=== PATIENT | male | born 1955 | race American Indian/Alaskan Native ===

== ENCOUNTER 2018-07-09 04:38 | Inpatient (IN) | payer OTHER ==
--- NOTE | 2018-07-09 05:16 | ED PDOC ---
Arrival/HPI - General Historian: Patient, Family - History of Present Illness Narrative History of Present Illness (Text): 07/09/18 05:14 63 y/o M with no significant PMHx brought in by EMS after presenting with seizure. Per sister present at bedside, pt had sudden foaming out of mouth, contraction of upper extremities, slurred speech which lead to pt falling forward from chair onto forehead. No urinary/stool incontinence reported. Pt responds to questions, however has difficulty speaking. Pt was sleeping most of the day, and was resting when the event occurred. Pt had last drink at 5 pm the previous night, and has a history alcohol abuse with about 1/2 pint daily x 30 years. Sister reports pt had normal meals throughout the day. Pt is a , and is visiting [place] from [place], where he normally visits the [facility]. PMH: denies All: NKDA PSH: unspecified neck surgery SH: Alcohol: 1/2 pint vodka/gin x ~30 years. 1/2 pack cigarettes x 50 years. FH: mother: breast ca- at 51y/o. father: esophageal ca- 63 y/o Meds: multivitamins Time/Duration: 1/2 hour <Nic Stevens - Last Filed: 07/09/18 07:03> <Cresencio Bruno - Last Filed: 07/09/18 07:06> - General Chief Complaint: Seizure Time Seen by Provider: 07/09/18 04:49 Past Medical History - Provider Review Nursing Documentation Reviewed: Yes - Psychiatric Hx Substance Use: No - Anesthesia Hx Anesthesia: No <Nic Stevens - Last Filed: 07/09/18 07:03> Family/Social History - Physician Review Nursing Documentation Reviewed: Yes Family/Social History: Neoplasm/Cancer Smoking Status: Never Smoked Hx Alcohol Use: No Hx Substance Use: No <Nic Stevens - Last Filed: 07/09/18 07:03> Allergies/Home Meds <Nic Stevens - Last Filed: 07/09/18 07:03> <Cresencio Bruno - Last Filed: 07/09/18 07:06> Allergies/Adverse Reactions: Allergies No Known Allergies Allergy (Verified 07/09/18 04:47) Home Medications: Home Meds Medication Instructions Recorded Confirmed No Known Home Med 07/09/18 07/09/18 Review of Systems - Review of Systems Constitutional: Normal Eyes: Normal ENT: Normal Respiratory: Normal Cardiovascular: Normal Gastrointestinal: Normal Genitourinary Male: Normal Musculoskeletal: Normal Skin: Normal Neurological: Seizure Endocrine: Normal Hemo/Lymphatic: Normal Psychiatric: Normal <Dandy Stevensmarylu - Last Filed: 07/09/18 07:03> Physical Exam Vital Signs Reviewed: Yes Temperature: Febrile Blood Pressure: Hypertensive Pulse: Tachycardic Respiratory Rate: Normal Appearance: Positive for: Non-Toxic, Comfortable Pain Distress: None Mental Status: Positive for: Alert and Oriented X 3 - Systems Exam Head: Present: Normocephalic, Abrasion (forehead) Pupils: Present: PERRL Extroacular Muscles: Present: EOMI Conjunctiva: Present: Normal Mouth: Present: Moist Mucous Membranes Neck: Present: Normal Range of Motion Respiratory/Chest: Present: Clear to Auscultation, Good Air Exchange. No: Re spiratory Distress, Accessory Muscle Use Cardiovascular: Present: Normal S1, S2, Tachycardic. No: Murmurs Abdomen: No: Tenderness, Distention, Peritoneal Signs Back: Present: Normal Inspection Upper Extremity: Present: Normal Inspection. No: Cyanosis, Edema Lower Extremity: Present: Normal Inspection. No: Edema Neurological: Present: GCS=15. No: Speech Normal Skin: Present: Warm, Dry, Normal Color. No: Rashes Psychiatric: Present: Alert <RodneyNic - Last Filed: 07/09/18 07:03> Vital Signs Pulse BP 07/09/18 05:48 145 H 205/104 H <Cresencio Bruno - Last Filed: 07/09/18 07:06> Medical Decision Making ED Course and Treatment: 07/09/18 05:25 Impression: 63 y/o M presenting after seizure Differential diagnosis includes, but not limited to: seizure ETOH withdrawal CVA intracranial hemorrhage Plan: Labs Head CT EKG Chest xray troponins [facility] protocol Ativan 1mg Reassess & Dispo Progress Notes: 07/09/18 05:44 Per nursing, pt had seizure-like activity while getting CT scan. 2mg ativan administered. 07/09/18 06:51 Pt re-evaluated. BP decreased to 162/94, HR down to 99. Pt resting comfortably. 07/09/18 07:03 Sign-out given to Dr. Downs. VSS stable. - RAD Interpretation Radiology Orders: 07/09/18 05:11 HEAD W/WO CONTRAST [CT] Stat CHEST ONE VIEW [RAD] Stat 07/09/18 05:13 HEAD W/O CONTRAST [CT] Stat - EKG Interpretation EKG Interpretation (Text): 07/09/18 05:54 Sinus tachycardia Possible L atrial enlargement HR: 115 QTc: 453 <Nic Stevens - Last Filed: 07/09/18 07:03> ED Course and Treatment: Impression: Pt seen and evaluated with medical accounts receivable specialist. Aware and agree with HPI, clinical findings, plan, and management. Pt, whose past medical history includes alcohol abuse, brought in s/p seizure episode. Plan: -- CT Head w/o contrastSigned out to -- EKG -- Chest X-ray -- Labs, alcohol level, troponin -- Urinalysis -- Ativan -- Lopressor -- Reassess and disposition 07/09/18 06:11 CT Head: Normal size of the ventricles and extra-axial spaces for the patient's age. Normal white matter tracts of the supratentorial brain. Normal basal ganglia and thalami. Normal brainstem. Normal cerebellum. There is no demonstrated extra-axial, intraparenchymal, or intraventricular h emorrhage. There are no findings of an acute ischemic infarction. Normal calvarium. There is no demonstrated fracture. Normal soft tissue structures. Normal visualized paranasal sinuses. IMPRESSION: Normal unenhanced CT scan of the brain. Electronically signed on Jul 09, 2018 6:03:09 AM EST by: Shay Guillermo M.D., Certified by ABR, MSK, Neuroradiology 07/09/18 07:05 Signed out to pending/labs/reassess/final disposition - Lab Interpretations Lab Results: 07/09/18 04:49 07/09/18 04:49 Lab Results 07/09/18 04:49: Sodium 138, Potassium 4.2, Chloride 105, Carbon Dioxide 16 L, Anion Gap 21 H, BUN 14, Creatinine 1.0, Est GFR ( Amer) > 60, Est GFR (Non-Af Amer) > 60, Random Glucose 133 H, Calcium 9.3, Phosphorus 4.1, Magnesium 2.0, Total Bilirubin 0.7, AST 261 H, ALT 122 H, Alkaline Phosphatase 106, Troponin I Pending, Total Protein 8.7 H, Albumin 4.6, Globulin 4.1, Albumin/Globulin Ratio 1.1 07/09/18 04:49: WBC 6.6, RBC 4.69, Hgb 14.5, Hct 42.8, MCV 91.3, MCH 30.9, MCHC 33.9, RDW 14.3, Plt Count 225, MPV 9.6, Gran % 39.8 L, Lymph % (Auto) 42.9 H, [place] % (Auto) 14.2 H, Eos % (Auto) 2.6, Baso % (Auto) 0.5, Gran # 2.65, Lymph # (Auto) 2.9, [place] # (Auto) 0.9 H, Eos # (Auto) 0.2, Baso # (Auto) 0.03 - RAD Interpretation Radiology Orders: 07/09/18 05:11 CHEST ONE VIEW [RAD] Stat 07/09/18 05:13 HEAD W/O CONTRAST [CT] Stat - Medication Orders Current Medication Orders: Acetaminophen (Tylenol 650 Mg Supp) 650 mg RC STAT STA Stop: 07/09/18 05:56 Discontinued Medications Lorazepam (Ativan) 2 mg IVP ONCE ONE; Protocol Stop: 07/09/18 05:35 Last Admin: 07/09/18 05:43 Dose: 2 mg IVP Administration Document 07/09/18 05:43 LAC (Rec: 07/09/18 05:43 LAC [id number]) Charges for Administration # of IVP Administrations 1 Metoprolol Tartrate (Lopressor) 5 mg IVP STAT STA Stop: 07/09/18 05:44 Last Admin: 07/09/18 05:48 Dose: 5 mg IVP Administration Document 07/09/18 05:48 JOL (Rec: 07/09/18 05:48 JOL [id number]) Charges for Administration # of IVP Administrations 1 [facility] Pulse and Blood Pressure Document 07/09/18 05:48 JOL (Rec: 07/09/18 05:48 JOL [id number]) Pulse Pulse Rate (60-90 beats/min) 145 Blood Pressure Blood Pressure (100/60-150/90 mm Hg) 205/104 <Cresencio Bruno - Last Filed: 07/09/18 07:06> - PA / MANAGEMENT EXPERT / Resident Statement JAIRO has reviewed & agrees with the documentation as recorded. / has examined the patient and agrees with the treatment plan. <Nic Stevens - Last Filed: 07/09/18 07:03> Disposition/Present on Arrival - Present on Arrival Any Indicators Present on Arrival: No History of DVT/PE: No History of Uncontrolled Diabetes: No Urinary Catheter: No History of Decub. Ulcer: No History Surgical Site Infection Following: None - Disposition Have Diagnosis and Disposition been Completed?: No Disposition Time: 07:04 <Nic Stevens - Last Filed: 07/09/18 07:03> - Present on Arrival Any Indicators Present on Arrival: No - Disposition Have Diagnosis and Disposition been Completed?: No <Cresencio Bruno - Last Filed: 07/09/18 07:06> - Disposition Diagnosis: New onset seizure Patient Problems: Current Active Problems Problem Status Onset New onset seizure Acute Condition: FAIR Forms: [employer] (Mexican)
[2018-07-09 05:32] LABS: BASO # 0.03 K/mm3 (0.0-2.0); BASO % 0.5 % (0.0-3.0); EOS # 0.2 (0.0-0.7); EOS % 2.6 % (1.5-5.0); GRAN # 2.65 (1.4-6.5); GRAN % 39.8 % (50.0-68.0); HEMOGLOBIN 14.5 g/dL (14.0-18.0); LYMPH # 2.9 (1.2-3.4); LYMPH % 42.9 % (22.0-35.0); MEAN CELL VOLUME 91.3 fl (80.0-105.0); MEAN CORPUSCULAR HEMOGLOBIN 30.9 pg (25.0-35.0); MEAN CORPUSCULAR HGB CONC 33.9 g/dl (31.0-37.0); MEAN PLATELET VOLUME 9.6 fl (7.0-11.0); MONO # 0.9 (0.1-0.6); MONO % 14.2 % (1.0-6.0); RBC 4.69 10^6/uL (3.5-6.1); RED CELL DISTRIBUTION WIDTH 14.3 % (11.5-14.5); WHITE BLOOD COUNT 6.6 10^3/uL (4.5-11.0)
[2018-07-09] MEDS ORDERED: Metoprolol 1 mg/ml Inj IVP STA (05:43)
[2018-07-09 05:50] LABS: ALB/GLOB RATIO 1.1 (1.1-1.8); ALBUMIN 4.6 g/dL (3.0-4.8); ALT/SGPT 122 U/L (7-56); AST/SGOT 261 U/L (17-59); BLOOD UREA NITROGEN 14 mg/dL (7-21); CALCIUM 9.3 mg/dL (8.4-10.5); GFR NON-AFRICAN AMERICAN > 60
[2018-07-09 05:59] LABS: TROPONIN I < 0.01 ng/mL
--- NOTE | 2018-07-09 07:01 | ED PDOC ---
Physical Exam Vital Signs Pulse BP 07/09/18 05:48 145 H 205/104 H Temperature: Febrile Blood Pressure: Hypertensive Pulse: Tachycardic Respiratory Rate: Normal Appearance: Positive for: Well-Appearing, Non-Toxic, Comfortable Mental Status: Positive for: Lethargic Medical Decision Making ED Course and Treatment: 07/09/18 06:[address] Ruelas with patient VSS after Lopressor. Patient came in for new onset seizure, febrile, tachycardic and tacypneic. Had 1 episode of seizure in Emergency Room. CTH negative with VBG and reassessment pending. 07/09/18 07:17 VBG results show lactate of 10.6. Updated family on findings and they are in agreement with plan for admission. Call placed to Dr. Zeng. 07/09/18 07:[address] Zeng(medical service) who accepts patient onto her service. She requests Dr. Williamson(neurology) for consult and Zosyn for empiric coverage. Patient placed on telemetry. - Lab Interpretations Lab Results: 07/09/18 04:49 07/09/18 04:49 Lab Results 07/09/18 04:49: Sodium 138, Potassium 4.2, Chloride 105, Carbon Dioxide 16 L, Anion Gap 21 H, BUN 14, Creatinine 1.0, Est GFR ( Amer) > 60, Est GFR (Non-Af Amer) > 60, Random Glucose 133 H, Calcium 9.3, Phosphorus 4.1, Magnesium 2.0, Total Bilirubin 0.7, AST 261 H, ALT 122 H, Alkaline Phosphatase 106, Troponin I < 0.01, Total Protein 8.7 H, Albumin 4.6, Globulin 4.1, Albumin/Globulin Ratio 1.1 07/09/18 04:49: WBC 6.6, RBC 4.69, Hgb 14.5, Hct 42.8, MCV 91.3, MCH 30.9, MCHC 33.9, RDW 14.3, Plt Count 225, MPV 9.6, Gran % 39.8 L, Lymph % (Auto) 42.9 H, [place] % (Auto) 14.2 H, Eos % (Auto) 2.6, Baso % (Auto) 0.5, Gran # 2.65, Lymph # (Auto) 2.9, [place] # (Auto) 0.9 H, Eos # (Auto) 0.2, Baso # (Auto) 0.03 I have reviewed the lab results: Yes - RAD Interpretation Narrative RAD Interpretations (Text): 07/09/18 07:20 CT of head reviewed by radiologist, shows: Normal unenhanced CT scan of the brain. Radiology Orders: 07/09/18 05:11 CHEST ONE VIEW [RAD] Stat 07/09/18 05:13 HEAD W/O CONTRAST [CT] Stat Manager Inventory: Radiologist - Medication Orders Current Medication Orders: Lorazepam (Ativan) 1 mg IVP Q2H PRN; Protocol PRN Reason: Seizure activity Discontinued Medications Acetaminophen (Tylenol 650 Mg Supp) 650 mg RC STAT STA Stop: 07/09/18 05:56 Lorazepam (Ativan) 2 mg IVP ONCE ONE; Protocol Stop: 07/09/18 05:35 Last Admin: 07/09/18 05:43 Dose: 2 mg IVP Administration Document 07/09/18 05:43 LAC (Rec: 07/09/18 05:[address] [facility]) Charges for Administration # of IVP Administrations 1 Metoprolol Tartrate (Lopressor) 5 mg IVP STAT STA Stop: 07/09/18 05:44 Last Admin: 07/09/18 05:48 Dose: 5 mg IVP Administration Document 07/09/18 05:48 JOL (Rec: 07/09/18 05:48 JOL [id number]) Charges for Administration # of IVP Administrations 1 MAR Pulse and Blood Pressure Document 07/09/18 05:48 JOL (Rec: 07/09/18 05:48 JOL [id number]) Pulse Pulse Rate (60-90) 145 Blood Pressure Blood Pressure (100/60-150/90) 205/104 Disposition/Present on Arrival - Present on Arrival Any Indicators Present on Arrival: No History of DVT/PE: No History of Uncontrolled Diabetes: No Urinary Catheter: No History of Decub. Ulcer: No History Surgical Site Infection Following: None - Disposition Have Diagnosis and Disposition been Completed?: Yes Diagnosis: New onset seizure Disposition: HOSPITALIZED Disposition Time: 07:42 Patient Plan: Admission Condition: FAIR
[2018-07-09] MEDS ORDERED: levETIRAcetam 1000mg/100ml NS 100 ML IV ONE (07:07)
[2018-07-09 07:09] LABS: VENOUS BLOOD GAS BASE EXCESS -9.8 mmol/L (0.0-2.0); VENOUS BLOOD GAS PO2 85 mm/Hg (30-55); VENOUS BLOOD PH 7.24 (7.32-7.43)
[2018-07-09] MEDS ORDERED: Piperacill/Tazo 4.5gm in NS 4.5 GM/100 ML BAG IVPB STA (07:40)
[2018-07-09] MEDS ORDERED: Labetalol 5mg/ml (4ml) IV STA (07:48)
[2018-07-09 08:14] LABS: PH,URINE 6.5 (4.7-8.0); URINE APPEARANCE CLEAR (CLEAR); URINE BILIRUBIN NEGATIVE (NEGATIVE); URINE BLOOD MODERATE (NEGATIVE); URINE COLOR LIGHT YELLOW (YELLOW); URINE GLUCOSE (UA) NEGATIVE (NEGATIVE); URINE LEUKOCYTE ESTERASE NEGATIVE Leu/uL (NEGATIVE); URINE PROTEIN 30 mg/dL (<30 mg/dL); URINE UROBILINOGEN 0.2 E.U./dL (<1 E.U./dL)
[2018-07-09 08:20] LABS: URINE WBC NEGATIVE /hpf (0-6)
--- NOTE | 2018-07-09 09:14 | CT ---
Date of service: 07/09/2018 PROCEDURE: CT HEAD WITHOUT CONTRAST. HISTORY: seizure COMPARISON: None available. TECHNIQUE: Axial computed tomography images were obtained through the head/brain without intravenous contrast. Supplemental Coronal and Sagittal projections created and reviewed. Radiation dose: Total exam DLP = 908.43 mGy-cm. This CT exam was performed using one or more of the following dose reduction techniques: Automated exposure control, adjustment of the mA and/or kV according to patient size, and/or use of iterative reconstruction technique. FINDINGS: HEMORRHAGE: No intracranial hemorrhage. BRAIN: No mass effect or edema. No atrophy or chronic microvascular ischemic changes. VENTRICLES: Unremarkable. No hydrocephalus. CALVARIUM: Unremarkable. PARANASAL SINUSES: Unremarkable as visualized. No significant inflammatory changes. MASTOID AIR CELLS: Unremarkable as visualized. No inflammatory changes. OTHER FINDINGS: None. IMPRESSION: No acute intracranial abnormalities. No significant findings to account for the clinical presentation. Concordant results (preliminary interpretation) provided by [employer]. Procedure Completed: 05:35. Preliminary Report: Dictated and Authenticated: 06:03. Final Interpretation: 09:10. July 09, 2018
[2018-07-09 10:02] LABS: VENOUS BLOOD GAS BASE EXCESS -1.6 mmol/L (0.0-2.0); VENOUS BLOOD GAS PO2 69 mm/Hg (30-55); VENOUS BLOOD PH 7.44 (7.32-7.43)
--- NOTE | 2018-07-09 10:34 | RAD ---
Date of service: 07/09/2018 PROCEDURE: CHEST RADIOGRAPH, 1 VIEW HISTORY: seizure COMPARISON: None available. FINDINGS: LUNGS: Clear. PLEURA: No pneumothorax or pleural fluid seen. CARDIOVASCULAR: No aortic atherosclerotic calcification present. Normal. OSSEOUS STRUCTURES: No significant abnormalities. VISUALIZED UPPER ABDOMEN: Normal. OTHER FINDINGS: None. IMPRESSION: No active disease.
--- NOTE | 2018-07-09 11:57 | US ---
Date of service: 07/09/2018 HISTORY: elevated lfts COMPARISON: None. TECHNIQUE: Sonographic evaluation of the right upper quadrant of the abdomen. FINDINGS: LIVER: Measures 13.8 cm in length. Patent portal vein. Portal venous flow: Hepatopetal. Unremarkable echogenicity of the liver parenchyma. No mass. No intrahepatic bile duct dilatation. GALLBLADDER: Unremarkable. No gallstones. COMMON BILE DUCT: Measures 3.2 mm. No stones. No dilatation. PANCREAS: Unremarkable as visualized. No mass. No ductal dilatation. RIGHT KIDNEY: Measures 4.5 x 10.5 cm in length. Normal echogenicity. No calculus, mass, or hydronephrosis. AORTA: No aneurysmal dilatation. IVC: Unremarkable. OTHER FINDINGS: None . IMPRESSION: No significant or acute findings to account for/ related to the clinical presentation.
--- NOTE | 2018-07-09 13:31 | HP ---
DATE OF EXAM: 07/09/2018 HISTORY OF PRESENT ILLNESS: This 63-year-old male was examined at his bedside and his case was reviewed with his nurse, Christy Orozco, registered nurse. I did discuss this case in detail with ER physician, Mitch Lundberg, medical physician. This 63-year-old male presented to the [facility] ER with new-onset seizure. He was visiting with his nephew for the holiday, they were having a constitution party last evening, he was drinking alcohol and experienced a seizure. He was brought to the [facility] by his family and in the ER was witnessed to have another grand mal seizure. In the ER, he was also noted to be tachycardic, tachypneic and hypertensive with a fever. He is admitted to the cardiac unit for further evaluation of the above. On questioning, this patient at is bedside, he is alert and cooperative but confused to person, place and time. He denies any knowledge of hitting his head, but he does have a bandage over his forehead with a newly noted abrasion. 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 On further questioning of the patient, he has no outpatient medications that he can remember. ALLERGIES: HE HAS NO KNOWN ALLERGIES TO MEDICATION. SOCIAL HISTORY: He is a social drinker, nonsmoker, non IV drug misuser. FAMILY HISTORY: Noncontributory. REVIEW OF SYSTEMS He has a fever of 101.8. He has no knowledge of seizures in his past. On head review, no knowledge of seizures in his past. On eye review, no change in visual acuity. Ear review, no hearing loss. Throat review, no swallowing difficulty. Neck review, no stiffness. Cardiac review, denied any knowledge of hypertension. Pulmonary: No cough. No hemoptysis. GI: No knowledge of hematemesis or melena. : No dysuria. Skin: No rash. Vascular: No knowledge of claudication. Psychological, denied depression. PHYSICAL EXAMINATION: VITAL SIGNS: At present, temperature 100, respirations 18, pulse 100, blood pressure 147/91 and pulse ox 98% room air. HEENT: Head: Normocephalic, atraumatic. Eyes: No icterus. Ears: Clear. Throat: Noninjected. NECK: Supple. HEART: Was regular S1, S2. LUNGS: Clear. ABDOMEN: Soft. EXTREMITIES: No edema. SKIN: Without rash. NEUROLOGICAL: Intact. He was able to move all four extremities and had good motor strength. PSYCHOLOGICAL: Confused to person, place and time. SKIN: Without rash. VASCULAR: Legs warm to touch. LABORATORY DATA: Sodium 138, K 4.2, chloride 105, bicarb 16, BUN 14, creatinine 1.0, random blood sugar 133, calcium 9.3. Phosphorous 4.1. Magnesium 2.0, AST 261, ALT 122, alk phos 106. Troponin less than 0.01, white count 6600, hemoglobin 14.5, hematocrit 42.8, platelets 125,000. Toxicology screen, alcohol less than 10. Chest x-ray was reviewed. The lungs were clear. There was no evidence of pleural effusion, no pneumothorax was noted, no infiltrates were seen. Head CT was reviewed. There was no intracranial hemorrhage. No obvious infarct. No skull fractures noted. EKG reportedly showed sinus tachycardia. Abdominal ultrasound was requested because of LFTs being elevated and reviewed. His liver measured 13.8 cm in length. There were no masses, no intrahepatic bile duct dilatations, gallbladder was unremarkable. There were no gallstones, bile duct showed no dilatation. Pancreas showed no masses. IMPRESSION: A 63-year-old male admitted with fever, tachycardia, status post seizure x2, now with postictal confusion and newly noted hypertensive findings and elevated LFTs. PLAN: At present is to check hepatitis ABC serology. He will be scheduled for repeat comprehensive metabolic panel in the a.m. and blood and urine cultures have been sent. The patient was given one dose of Zosyn 4.5 g in the emergency room in consultation with Dr. Tacos Wallis from Infectious Disease is pending. A consultation with Dr. Hudson Williamson regarding new-onset seizures has been requested. The patient is scheduled to receive 1 mg of Ativan IV every 2 hours p.r.n. seizure. The patient was loaded with IV Keppra. We will monitor his blood pressure and I will order clonidine p.r.n. accelerated hypertension. Based upon his clinical progress, additional diagnostic workup and testing will be entertained. Greater than 75 minutes was spent in the care management. Review of labs, orders and x-rays and discussion of this patient with himself and nursing at bedside. All questions were answered. Renuka Zeng MD [facility]
[2018-07-09] MEDS ORDERED: Influenza Vaccine 60 mcg/0.5 mL SYR (4YR UP) IM ONE (13:38)
[2018-07-09] MEDS ORDERED: Pneumococcal 23-Valent Vaccine IM ONE (13:38)
[2018-07-09 16:30] LABS: HEPATITIS B SURFACE AG Negative (NEGATIVE)
[2018-07-09 16:35] LABS: HEPATITIS A IGM NEGATIVE (NEGATIVE); HEPATITIS B CORE AB NEGATIVE (NEGATIVE)
--- NOTE | 2018-07-09 16:45 | CP.PCM.CON ---
History of Present Illness - History of Present Illness History of Present Illness: Infectious Disease Consultation: July 09, 2018 63 yo male with new onset seizure. He was visiting his nephew in the area and during a libertarian he was witnessed having a seizure. [place] [facility] [place] where a grand mal seizure was again witnessed. In the ER he was found to be tachycardic, tachypneic, hypertensive, and febrile. In ER the patient was awake and alert but not orientated to person, place, or time but he was somehow able to give a good account of his past such as work history. Patient sister describe seizure as sudden foaming out of mouth, contraction of upper extremities, slurred speech which lead to pt falling forward from chair onto forehead. PMHx: none given PSHx: unspecified neck surgery Allergies: NKDA Social Hx: History of EtOH abuse - 1/2 pint vodka/gin for 30 years 1/2 ppd of cigarettes for 50 years Active Medications Acetaminophen (Tylenol 325mg Tab) 650 mg PO Q6H PRN PRN Reason: FEVER OR PAIN Last Admin: 07/09/18 12:48 Dose: 650 mg Bacitracin (Bacitracin) 0 gm TOP BID HEIDI Clonidine HCl (Catapres) 0.1 mg PO Q4H PRN PRN Reason: accelerated htn Last Admin: 07/09/18 12:47 Dose: 0.1 mg Lorazepam (Ativan) 1 mg IVP Q2H PRN; Protocol PRN Reason: Seizure activity Family Hx: Breast Cancer - mother at 51 yo Esophageal Cancer - father at 63 yo ROS: No fevers, chills, nausea, vomiting, diarrhea, headaches, dizziness, chest pain, abdominal pain, melena, hematuria, hematemesis, hematochezia, depression, anxiety. He is confused however. Past Patient History - Past Social History Smoking Status: Heavy Smoker > 10 Cigarettes Daily - CARDIAC Hx Cardiac Disorders: No - PULMONARY Hx Respiratory Disorders: Yes (smokes 1 ppd x 50 yrs) - NEUROLOGICAL Hx Neurological Disorder: No - HEENT Hx HEENT Problems: Yes (reading glasses) - RENAL Hx Chronic Kidney Disease: No - ENDOCRINE/METABOLIC Hx Endocrine Disorders: No - HEMATOLOGICAL/ONCOLOGICAL Hx Blood Disorders: Yes 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27) - INTEGUMENTARY Hx Dermatological Problems: Yes Other/Comment: skin discolorations from itchy rash x 1 month, pt can't remember the cream he uses for it, dry red scrape lle, 4cm x 0.5cm laceration to forehead from falling from chair last night, b/l hammertoes 2 3 4 - MUSCULOSKELETAL/RHEUMATOLOGICAL Hx Falls: Yes (fell from chair last night) - GASTROINTESTINAL Hx Gastrointestinal Disorders: Yes Hx Gastroesophageal Reflux: Yes (in the past) - GENITOURINARY/GYNECOLOGICAL Hx Genitourinary Disorders: No - PSYCHIATRIC Hx Substance Use: Yes (quit iv heroin/coke use age 27) - SURGICAL HISTORY Hx Surgeries: Yes Hx Appendectomy: Yes (11-12 yrs old) Other/Comment: abd hernia sx as a teenager - ANESTHESIA Hx Anesthesia: No Meds Allergies/Adverse Reactions: Allergies Allergy/AdvReac Type Severity Reaction Status Date / Time No Known Allergies Allergy Verified 07/09/18 04:47 - Medications Medications: Current Medications Acetaminophen (Tylenol 325mg Tab) 650 mg PO Q6H PRN PRN Reason: FEVER OR PAIN Last Admin: 07/09/18 12:48 Dose: 650 mg Bacitracin (Bacitracin) 0 gm TOP BID HEIDI Clonidine HCl (Catapres) 0.1 mg PO Q4H PRN PRN Reason: accelerated htn Last Admin: 07/09/18 12:47 Dose: 0.1 mg Lorazepam (Ativan) 1 mg IVP Q2H PRN; Protocol PRN Reason: Seizure activity Physical Exam - Constitutional Appears: Non-toxic, No Acute Distress, Chronically Ill - Head Exam Head Exam: ATRAUMATIC, NORMOCEPHALIC - Eye Exam Eye Exam: EOMI, PERRL Pupil Exam: NORMAL ACCOMODATION, PERRL - ENT Exam ENT Exam: Mucous Membranes Moist, Normal External Ear Exam, TM's Normal Bilaterally - Neck Exam Neck exam: Positive for: Full Rom, Normal Inspection - Respiratory Exam Respiratory Exam: Clear to Auscultation Bilateral, NORMAL BREATHING PATTERN. absent: Rales, Rhonchi, Wheezes - Cardiovascular Exam Cardiovascular Exam: REGULAR RHYTHM, RRR, +S1, +S2 - GI/Abdominal Exam GI & Abdominal Exam: Normal Bowel Sounds, Soft. absent: Diminished Bowel Sounds, Tenderness - Extremities Exam Extremities exam: Positive for: full ROM, normal inspection - Neurological Exam Neurological exam: Alert, CN II-XII Intact Additional comments: Confused. - Psychiatric Exam Psychiatric exam: Normal Affect, Normal Mood - Skin Skin Exam: Intact, Normal Color Results - Vital Signs Recent Vital Signs: Last Vital Signs Temp 101.1 F H 07/09/18 12:00 Pulse 100 H 07/09/18 13:17 Resp 18 07/09/18 13:17 BP 136/79 07/09/18 12:47 Pulse Ox 98 07/09/18 09:06 - Labs Result Diagrams: 07/09/18 04:49 07/09/18 04:49 Labs: Laboratory Results - last 24 hr 07/09/18 07/09/18 07/09/18 04:49 04:49 04:49 WBC 6.6 RBC 4.69 Hgb 14.5 Hct 42.8 MCV 91.3 MCH 30.9 MCHC 33.9 RDW 14.3 Plt Count 225 MPV 9.6 Gran % 39.8 L Lymph % (Auto) 42.9 H [place] % (Auto) 14.2 H Eos % (Auto) 2.6 Baso % (Auto) 0.5 Gran # 2.65 Lymph # (Auto) 2.9 [place] # (Auto) 0.9 H Eos # (Auto) 0.2 Baso # (Auto) 0.03 pO2 VBG pH VBG pCO2 VBG HCO3 VBG Total CO2 VBG O2 Sat (Calc) VBG Base Excess VBG Potassium Glucose Lactate FiO2 Sodium 138 Potassium 4.2 Chloride 105 Carbon Dioxide 16 L Anion Gap 21 H BUN 14 Creatinine 1.0 Est GFR ( Amer) > 60 Est GFR (Non-Af Amer) > 60 Random Glucose 133 H Calcium 9.3 Phosphorus 4.1 Magnesium 2.0 Total Bilirubin 0.7 AST 261 H ALT 122 H Alkaline Phosphatase 106 Troponin I < 0.01 Total Protein 8.7 H Albumin 4.6 Globulin 4.1 Albumin/Globulin Ratio 1.1 Venous Blood Potassium Urine Color Urine Appearance Urine pH Ur Specific [place] Urine Protein Urine Glucose (UA) Urine Ketones Urine Blood Urine Nitrate Urine Bilirubin Urine Urobilinogen Ur Leukocyte Esterase Urine RBC Urine WBC Ur Epithelial Cells Alcohol, Quantitative < 10 07/09/18 07/09/18 07/09/18 05:45 08:00 09:55 WBC RBC Hgb Hct MCV MCH MCHC RDW Plt Count MPV Gran % Lymph % (Auto) [place] % (Auto) Eos % (Auto) Baso % (Auto) Gran # Lymph # (Auto) [place] # (Auto) Eos # (Auto) Baso # (Auto) pO2 85 H 69 H VBG pH 7.24 L 7.44 H VBG pCO2 40.0 32.0 L VBG HCO3 17.1 L 21.7 VBG Total CO2 18.3 L 22.7 VBG O2 Sat (Calc) 96.2 H 96.7 H VBG Base Excess -9.8 L -1.6 L VBG Potassium 4.9 3.0 L Glucose 139 H 112 H Lactate 10.6 H* 1.6 FiO2 21.0 21.0 Sodium 136.0 137.0 Potassium Chloride 101.0 104.0 Carbon Dioxide Anion Gap BUN Creatinine Est GFR ( Amer) Est GFR (Non-Af Amer) Random Glucose Calcium Phosphorus Magnesium Total Bilirubin AST ALT Alkaline Phosphatase Troponin I Total Protein Albumin Globulin Albumin/Globulin Ratio Venous Blood Potassium 4.9 3.0 L Urine Color Light yellow Urine Appearance Clear Urine pH 6.5 Ur Specific [place] 1.020 Urine Protein 30 H Urine Glucose (UA) Negative Urine Ketones Negative Urine Blood Moderate H Urine Nitrate Negative Urine Bilirubin Negative Urine Urobilinogen 0.2 Ur Leukocyte Esterase Negative Urine RBC 1 - 3 H Urine WBC Negative Ur Epithelial Cells None Alcohol, Quantitative Assessment & Plan - Assessment and Plan (Free Text) Assessment: 63 yo male presenting with grand mal seizure [place] [facility] Infectious Disease called for a potential infectious component that may have triggered the seizure. No leukocytosis. Fever up to 101.8 F. Chest X-ray no active disease. CT Head no significant abnormalities. The patient is confused since seizure event. The patient received one dose of Zosyn. Can continue on Rocephin for now. Zaragoza cultures. Supportive care. Fevers were more likely secondary to seizure event. Thank you for allowing me to participate in the care of the patient, we will follow with you.
[2018-07-09 17:50] LABS: HEPATITIS C ANTIBODY REACTIVE (NEGATIVE)
[2018-07-09] MEDS: Bacitracin Ointment 30 GM TUBE TOP SCH (18:54)
--- NOTE | 2018-07-09 18:54 | CON ---
DATE: 07/09/2018 CHIEF COMPLAINT: Seizure. 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 Denied any new onset of seizure. Apparently, he was visiting his nephew for his holiday and had a constitution party last night and he was binge drinking and experienced a seizure. He was drinking one-half pint of gin and occasionally he binge drinks at times. He said years ago, he had a similar episode. His CAT scan has shown acute intracranial abnormality. Currently, no focal deficit on neuro examination. He had with seizure left hand, forehead and with some laceration. He has been drinking one-half pint of vodka and gin for the past 30 years and smokes about half pack cigarettes for the past 50 years. He binge drinks, but no history of any meningitis or seizures as a child alcohol-induced. His chest x-ray showed no active disease. No focal weakness in lower extremities. PAST MEDICAL HISTORY: As above. SOCIAL HISTORY: History of EtOH abuse, half a pint of vodka and gin for 30 years and half pack of cigarettes for 50 years. ALLERGIES: NO KNOWN DRUG ALLERGIES. MEDICATIONS: Reviewed by nurse's reconciliation sheet. REVIEW OF SYSTEMS: A 14-point review of systems is negative except as per HPI. LABORATORY DATA: Sodium is 138, potassium is 4.2, chloride 105, carbon dioxide is 16, BUN of 14, creatinine 1.9, random glucose 133, B12 505. PHYSICAL EXAMINATION: GENERAL: The patient is seen up in bed. No acute distress. VITAL SIGNS: Temperature 101.1, pulse rate of 96, blood pressure of 132/67, respiratory rate 18, oxygen saturation 95% on room air. HEENT: Atraumatic and normocephalic. PERRLA. Extraocular muscles are intact. NECK: Supple. No JVD. No adenopathy noted. LUNGS: Clear to auscultation. No adventitious sounds. HEART: S1 and S2. Normal rate and rhythm. No murmurs, rubs or gallops. ABDOMEN: Soft, nontender and nondistended. Bowel sounds are present. EXTREMITIES: No clubbing. No cyanosis. Peripheral pulses 2+ felt bilaterally. NEUROLOGIC: The patient is alert, oriented to person and place. Speech is fluent without any errors. Cranial nerves II through XII are intact. Motor exam: Moves all extremities equally. No pronator drift is seen. Sensory: Decreased light touch and pinprick, proprioception, and vibration are intact. DTRs are 2+ throughout, 1 in both knees and ankles. Coordination: [id number] is intact. No dysmetria noted. Gait is deferred for now. IMPRESSION: New onset seizure, likely alcohol-induced from binge drinking as well as poor sleep hygiene and he mentioned he only sleeps about 4 hours a day and cause for breakthrough seizure. At this time, I recommend no ADLs for now. He received 1 g of Keppra already in the ER. CAT scan of the head shown no acute intracranial abnormalities. He is going for an MRI of the brain, if negative he will go home. Recommend as well as thiamine 100 mg p.o. daily and alcohol cessation. Once again, thanks for this consult. Hudson Williamson MD
--- NOTE | 2018-07-09 20:37 | CARD ---
APPROVED REPORT Date of service: 07/09/2018 EKG Measurement Heart [id number] <Conclusion> Sinus tachycardia Possible Left atrial enlargement Borderline ECG
[2018-07-10 08:10] LABS: ALB/GLOB RATIO 1.1 (1.1-1.8); CALCIUM 9.1 mg/dL (8.4-10.5)
[2018-07-10] MEDS: Bacitracin Ointment 30 GM TUBE TOP SCH ×2 (09:45→17:39)
[2018-07-10] MEDS: cefTRIAXone 1 gm 1 GM/100 ML BAG IVPB SCH (09:45)
[2018-07-10] MEDS ORDERED: Potassium Chloride 20 mEq ER Tab PO ONE (09:52)
[2018-07-10] MEDS: Sodium Chloride 0.9% 1,000 ML IV SCH ×3 (11:21→23:03)
--- NOTE | 2018-07-10 13:28 | MRI ---
Date of service: 07/09/2018 PROCEDURE: MRI BRAIN WITHOUT CONTRAST HISTORY: seizure COMPARISON: Noncontrast head CT from 07/01/2018. TECHNIQUE: Multiplanar, multisequence MR images of the brain were obtained without intravenous contrast enhancement. FINDINGS: HEMORRHAGE: None DWI: No evidence of an acute or early subacute infarction. BRAIN PARENCHYMA: There are mild chronic microangiopathic changes. There is a chronic infarction in the left paramedian posterior parietal lobe. There is no mass, mass effect or abnormal extra-axial fluid collection. There is no territorial infarction. The midline sagittal structures are normal. VENTRICLES: There is mild age-related global parenchymal volume loss and proportionate enlargement of the ventricles and cortical sulci. CRANIUM: There is normal bone marrow signal pattern. ORBITS: Grossly unremarkable. PARANASAL SINUSES/MASTOIDS: There is mild mucosal thickening in the paranasal sinuses, worse in the right ethmoid air cells. The mastoid air cells are clear. VASCULAR SYSTEM: There are normal signal voids in the larger intracranial arteries. OTHER FINDINGS: There is moderate midline and left frontal soft tissue swelling. IMPRESSION: No acute intracranial abnormality. 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 Mild chronic microangiopathic changes and mild age-related global parenchymal volume loss.
--- NOTE | 2018-07-10 17:29 | CP.PCM.PN ---
Subjective - Date & Time of Evaluation Date of Evaluation: 07/10/18 Time of Evaluation: 16:00 - Subjective Subjective: Infectious Disease Follow Up: July 10, 2018 63 yo male with new onset seizure. He was visiting his nephew in the area and during a republican he was witnessed having a seizure. He was taken [place] [facility] [place] where a grand mal seizure was again witnessed. In the ER he was found to be tachycardic, tachypneic, hypertensive, and febrile. In ER the patient was awake and alert but not orientated to person, place, or time but he was somehow able to give a good account of his past such as work history. Patient sister describe seizure as sudden foaming out of mouth, contraction of upper extremities, slurred speech which lead to pt falling forward from chair onto forehead. Today the patient is much more awake and alert. Afebrile today. No leukocytosis. Blood cultures negative at 24 hours. Family remarks that the patient is Hypertensive but refused to take his medications. Objective - Vital Signs/Intake and Output Vital Signs (last 24 hours): Temp Pulse Resp BP Pulse Ox 98.1 F 72 21 120/79 98 07/10/18 12:00 07/10/18 14:00 07/10/18 12:00 07/10/18 12:00 07/09/18 09:06 Intake and Output: 07/10/18 07/10/18 06:59 18:59 Intake Total 240 Balance 240 - Medications Medications: Current Medications Acetaminophen (Tylenol 325mg Tab) 650 mg PO Q6H PRN PRN Reason: FEVER OR PAIN Last Admin: 07/09/18 18:59 Dose: 650 mg Bacitracin (Bacitracin) 0 gm TOP BID HEIDI Last Admin: 07/10/18 09:45 Dose: 1 applic Clonidine HCl (Catapres) 0.1 mg PO Q4H PRN PRN Reason: accelerated htn Last Admin: 07/09/18 12:47 Dose: 0.1 mg Ceftriaxone Sodium (Rocephin 1 Gram Ivpb) 1 gm in 100 mls @ 100 mls/hr IVPB DAILY [facility]; Protocol Last Admin: 07/10/18 09:45 Dose: 100 mls/hr Sodium Chloride (Sodium Chloride 0.9%) 1,000 mls @ 100 mls/hr IV .Q10H HEIDI Last Admin: 07/10/18 11:21 Dose: 100 mls/hr Lorazepam (Ativan) 1 mg IVP Q2H PRN; Protocol PRN Reason: Seizure activity Thiamine HCl (Vitamin B1 Tab) 100 mg PO DAILY HEIDI Last Admin: 07/10/18 09:59 Dose: 100 mg - Labs Labs: 07/09/18 04:49 07/10/18 06:30 - Constitutional Appears: Non-toxic, No Acute Distress - Head Exam Head Exam: NORMOCEPHALIC Additional comments: bandage on forehead for and cut from falling into the floor hitting forehead. - Eye Exam Eye Exam: EOMI, PERRL Pupil Exam: NORMAL ACCOMODATION, PERRL - ENT Exam ENT Exam: Mucous Membranes Moist, Normal External Ear Exam, TM's Normal Bilaterally - Neck Exam Neck Exam: Full ROM, Normal Inspection - Respiratory Exam Respiratory Exam: Clear to Ausculation Bilateral, NORMAL BREATHING PATTERN. absent: Rales, Rhonchi, Wheezes - Cardiovascular Exam Cardiovascular Exam: REGULAR RHYTHM, RRR, +S1, +S2 - GI/Abdominal Exam GI & Abdominal Exam: Soft, Normal Bowel Sounds. absent: Distended, Tenderness - Extremities Exam Extremities Exam: Full ROM, Normal Inspection - Neurological Exam Neurological Exam: Alert, Awake, CN II-XII Intact, Oriented x3 - Psychiatric Exam Psychiatric exam: Normal Affect, Normal Mood - Skin Skin Exam: Intact, Normal Color Assessment and Plan - Assessment and Plan (Free Text) Assessment: 63 yo male presenting with grand mal seizure to [facility] Infectious Disease called for a potential infectious component that may have triggered the seizure. No leukocytosis. Fever up to 101.8 F. Chest X-ray no active disease. CT Head no significant abnormalities. The patient is confused since seizure event but recovered by the evening. The patient received one dose of Zosyn. Can continue on Rocephin for now. Zaragoza cultures. Cultures of blood negative at 24 hours. Today the patient fully awake and alert. Bump on the left forehead from his fall into the floor during the seizure episode. His children state that the patient has Hypertension and that the patient has refused to take his blood pressure medications for the past few months. Supportive care. Fevers were more likely secondary to seizure event. Thank you for allowing me to participate in the care of the patient, we will f prosper with you.
--- NOTE | 2018-07-10 20:19 | PCM.FALL ---
Post Fall Progress Note - Post Fall Fall Date: 07/10/18 Fall Time: 20:00 - Post Fall Exam Vital Sign: Temp Pulse Resp BP Pulse Ox 98.1 F 72 21 120/79 98 07/10/18 12:00 07/10/18 18:00 07/10/18 12:00 07/10/18 12:00 07/09/18 09:06 Eye Exam: Positive for: Pupils equal, Pupils reactive Mouth Exam: Negative for: Tongue bitten, Teeth dislodge Chest Exam: Negative for: Difficulty breathing, Tenderness in collar bones, Tenderness in ribs Abdomen Exam: Negative for: Tenderness Pelvic Exam: Negative for: Tenderness, Hematuria Arm Exam: Negative for: Deformity, Alteration in range of movement Impression/Plan: Patient seen and examined at bedside after Star Code has been activated. Patient states that he was trying to get out of bed without asking for nurse assistance. He tripped and hit his left elbow. He denies head trauma, LOC, dizziness, headache, visual changes, palpitations or seizure symptoms. Vital signs stable. heart, lung and neuro exam wnl without any motor, sensory deficits MSK exam is normal with full ROM in upper and lower limb joints. Intact skin with no bruises or lacerations. no imaging are required. Patient is hemodynamically stable with no complaints. Jack Hernandes DO, PGY1
[2018-07-11 07:32] LABS: ALBUMIN 3.8 g/dL (3.0-4.8)
[2018-07-11] MEDS: cefTRIAXone 1 gm 1 GM/100 ML BAG IVPB SCH (09:44)
[2018-07-11] MEDS: Bacitracin Ointment 30 GM TUBE TOP SCH ×2 (09:44→17:50)
[2018-07-11] MEDS: Sodium Chloride 0.9% 1,000 ML IV SCH ×3 (09:45→22:00)
--- NOTE | 2018-07-11 17:27 | CP.PCM.PN ---
Subjective - Date & Time of Evaluation Date of Evaluation: 07/11/18 Time of Evaluation: 16:00 - Subjective Subjective: Infectious Disease Follow Up: July 11, 2018 63 yo male with new onset seizure. He was visiting his nephew in the area and during a republican he was witnessed having a seizure. He was taken [place] [facility] [place] where a grand mal seizure was again witnessed. In the ER he was found to be tachycardic, tachypneic, hypertensive, and febrile. In ER the patient was awake and alert but not orientated to person, place, or time but he was somehow able to give a good account of his past such as work history. Patient sister describe seizure as sudden foaming out of mouth, contraction of upper extremities, slurred speech which lead to pt falling forward from chair onto forehead. Today the patient is much more awake and alert. Afebrile today. No leukocytosis. Blood cultures negative at 24 hours. Family remarks that the patient is Hypertensive but refused to take his medications. The patient had a fall yesterday evening. Bed alarm back in place. Gait abnormalities. Objective - Vital Signs/Intake and Output Vital Signs (last 24 hours): Temp Pulse Resp BP Pulse Ox 99.1 F 69 20 156/96 H 99 07/11/18 12:00 07/11/18 12:00 07/11/18 12:00 07/11/18 12:00 07/11/18 06:00 Intake and Output: 07/11/18 07/11/18 06:59 18:59 Intake Total 1400 Output Total 650 Balance 750 - Medications Medications: Current Medications Acetaminophen (Tylenol 325mg Tab) 650 mg PO Q6H PRN PRN Reason: FEVER OR PAIN Last Admin: 07/09/18 18:59 Dose: 650 mg Bacitracin (Bacitracin) 0 gm TOP BID HEIDI Last Admin: 07/11/18 09:44 Dose: 1 applic Clonidine HCl (Catapres) 0.1 mg PO Q4H PRN PRN Reason: accelerated htn Last Admin: 07/09/18 12:47 Dose: 0.1 mg Ceftriaxone Sodium (Rocephin 1 Gram Ivpb) 1 gm in 100 mls @ 100 mls/hr IVPB DAILY [facility]; Protocol Last Admin: 07/11/18 09:44 Dose: 100 mls/hr Sodium Chloride (Sodium Chloride 0.9%) 1,000 mls @ 100 mls/hr IV .Q10H HEIDI Last Admin: 07/11/18 09:45 Dose: 100 mls/hr Lorazepam (Ativan) 1 mg IVP Q2H PRN; Protocol PRN Reason: Seizure activity Thiamine HCl (Vitamin B1 Tab) 100 mg PO DAILY [facility] Last Admin: 07/11/18 09:44 Dose: 100 mg - Labs Labs: 07/09/18 04:49 07/11/18 06:45 - Constitutional Appears: Non-toxic, No Acute Distress, Chronically Ill - Head Exam Head Exam: NORMOCEPHALIC Additional comments: bandage on forehead for and cut from falling into the floor hitting forehead. - Eye Exam Eye Exam: EOMI, PERRL Pupil Exam: NORMAL ACCOMODATION, PERRL - ENT Exam ENT Exam: Mucous Membranes Moist, Normal External Ear Exam, TM's Normal Bilaterally - Neck Exam Neck Exam: Full ROM, Normal Inspection - Respiratory Exam Respiratory Exam: Clear to Ausculation Bilateral, NORMAL BREATHING PATTERN. absent: Rales, Rhonchi, Wheezes - Cardiovascular Exam Cardiovascular Exam: REGULAR RHYTHM, RRR, +S1, +S2 - GI/Abdominal Exam GI & Abdominal Exam: Soft, Normal Bowel Sounds. absent: Distended, Tenderness - Extremities Exam Extremities Exam: Full ROM, Normal Inspection - Neurological Exam Neurological Exam: Abnormal Gait, Alert, Awake, CN II-XII Intact, Oriented x3. absent: Normal Gait - Psychiatric Exam Psychiatric exam: Normal Affect, Normal Mood - Skin Skin Exam: Intact, Normal Color Additional comments: As above. Assessment and Plan - Assessment and Plan (Free Text) Assessment: 63 yo male presenting with grand mal seizure to [facility] Infectious Disease called for a potential infectious component that may have triggered the seizure. No leukocytosis. Fever up to 101.8 F. Chest X-ray no active disease. CT Head no significant abnormalities. The patient is confused since seizure event but recovered by the evening. The patient received one dose of Zosyn. Can continue on Rocephin for now. Zaragoza cultures. Cultures of blood negative at 24 hours. Today the patient fully awake and alert. Bump on the left forehead from his fall into the floor during the seizure episode. His children state that the patient has Hypertension and that the patient has refused to take his blood pressure medications for the past few months. Supportive care. Fevers were more likely secondary to seizure event. Afebrile since. No further seizures. Patient still with unsteady gait. Noted fall last night. Thank you for allowing me to participate in the care of the patient, we will follow with you.
[2018-07-12] MEDS: Sodium Chloride 0.9% 1,000 ML IV SCH (02:00)
--- NOTE | 2018-07-12 08:47 | PN ---
DATE: 07/10/2018 SUBJECTIVE: This 63-year-old male was examined at his bedside on the morning of 07/10/2018 on the cardiac almanzar at the [facility]. Present for the interview was his sister, Jeni and family member Mariah. The patient was alert, but remains intermittently confused to date and time. He denied any fever, chills, chest pain or shortness of breath and was in a normal sinus rhythm on the cardiac specialist. PHYSICAL EXAMINATION: VITAL SIGNS: His temperature was 99.5, respirations 18, pulse 78, and blood pressure 123/85. HEENT: Head: Normocephalic, atraumatic. Eyes: No icterus. Ears: Clear. Throat: Noninjected. NECK: Supple. HEART: Regular S1, S2. LUNGS: Clear. ABDOMEN: Soft. EXTREMITIES: No edema. SKIN: Without rash. NEUROLOGICAL: Motor strength grossly intact. VASCULAR: Legs, warm to touch. LABORATORY DATA: I did review his hepatic ultrasound. There was unremarkable echogenicity of his liver parenchyma. There were no masses, no intrahepatic bile duct dilatation. His gallbladder showed no gallstones, common bile duct showed no dilatation. 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 No acute intracranial abnormalities were noted. IMPRESSION: A 63-year-old male with alcoholic seizure with comorbidities of fever of unclear etiology and admitted with elevated liver function testing in the setting of alcoholic binge during which the patient sustained a scalp laceration. PLAN: The plan at present is to continue thiamine 100 mg p.o. b.i.d., Tylenol 650 mg p.o. every 6 hours p.r.n. pain or fever. He continues on 0.9 saline at 100 mL/hour, Rocephin 1 g intravenous every 24, clonidine 0.1 mg p.o. every 4 hours p.r.n. accelerated hypertension if systolic blood pressure should be greater than 160 or diastolic blood pressure should be greater than 100. He is ordered to receive Ativan 1 mg intravenous every 2 hours p.r.n. agitation or withdrawal seizures and also has an order for bacitracin topically to his forehead abrasion b.i.d. with a dry sterile dressing. He continues to be followed by Dr. Tacos Wallis from Infectious Disease and it should be noted that his blood culture show no growth at 24 hours. He will remain on the cardiac almanzar, is scheduled for a heart-healthy diet, seizure precautions, alcohol withdrawal assessment, aspiration precautions and fall precautions. I have ordered physical therapy for ambulation and staircase safety, and based on clinical progress, additional diagnostic workup and testing will be entertained. Greater than 35 minutes was spent in the care management, review of labs, orders and x-rays and discussion of this patient with himself and family members at bedside and nursing. All questions were answered. Renuka Zeng MD MTDD
--- NOTE | 2018-07-12 09:34 | CP.PCM.CON ---
<Jack Hernandes - Last Filed: 07/12/18 14:46> History of Present Illness - History of Present Illness History of Present Illness: Jack Hernandes DO. GI consult note for Dr Baumann 63 y/o male with PMH of HCV (treated in ), active extensive alcohol abuse admitted to [facility] for witnessed seizure episode for the first time. He is a visiting from [place]. Patient encounter a seizure episode at a green party when he sustained sudden foaming out of mouth, contraction of upper e xtremities, slurred speech and head trauma. GI consulted for transaminitis and h/o HCV. He has an extensive history of alcohol abuse, IV drug use and tobacco use since teenage. He was treated for HCV in and since then he denied any GI symptoms. He is following up in [facility] in [place] at regular basis. His abd U/S, EGD, CSPY were within 10 years ago with normal results. Patient denied symptoms of abdominal pain, N/V/D, changes in bowel movement, dark stool, blood per rectum, hematemetis, hematochezia, early satienty, scleral icterus. ROS reviewed as above PMH: HCV (treated in ) PSH: unspecified neck surgery All: NKDA Meds: multivitamins SH: Alcohol: 1/2 pint vodka/gin and 4 cans of beer 4 times a week since teenage. 1/2 ppd x 50 years. FH: mother had breast cancar, at 51y/o. father had esophageal ca, 63 y/o Endo: EGD/CSPY within 10 years ago with negative results Past Patient History - Past Social History Smoking Status: Heavy Smoker > 10 Cigarettes Daily - CARDIAC Hx Cardiac Disorders: No Hx Congestive Heart Failure: No Hx Hypercholesterolemia: No Hx Hypertension: No - PULMONARY Hx Chronic Obstructive Pulmonary Disease (COPD): No - NEUROLOGICAL HX Cerebrovascular Accident: No - HEENT Hx HEENT Problems: Yes (reading glasses) - RENAL Hx Renal Failure: No - ENDOCRINE/METABOLIC Hx Diabetes Mellitus Type 1: No Hx Diabetes Mellitus Type 2: No Hx Hypothyroidism: No - HEMATOLOGICAL/ONCOLOGICAL Hx Blood Disorders: Yes 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27) - INTEGUMENTARY Hx Dermatological Problems: Yes Other/Comment: skin discolorations from itchy rash x 1 month, pt can't remember the cream he uses for it, dry red scrape lle, 4cm x 0.5cm laceration to forehead from falling from chair last night, b/l bennie 2 3 4 - MUSCULOSKELETAL/RHEUMATOLOGICAL Hx Arthritis: No Hx Rheumatoid Arthritis: No - GASTROINTESTINAL Hx Gastrointestinal Disorders: Yes Hx Gastroesophageal Reflux: Yes (in the past) - GENITOURINARY/GYNECOLOGICAL Hx Genitourinary Disorders: No - PSYCHIATRIC Hx Substance Use: Yes (quit iv heroin/coke use age 27) - SURGICAL HISTORY Hx Surgeries: Yes Hx Appendectomy: Yes (11-12 yrs old) Other/Comment: abd hernia sx as a teenager - ANESTHESIA Hx Anesthesia: No Meds Allergies/Adverse Reactions: Allergies Allergy/AdvReac Type Severity Reaction Status Date / Time No Known Allergies Allergy Verified 07/09/18 04:47 - Medications Medications: Current Medications Acetaminophen (Tylenol 325mg Tab) 650 mg PO Q6H PRN PRN Reason: FEVER OR PAIN Last Admin: 07/09/18 18:59 Dose: 650 mg Bacitracin (Bacitracin) 0 gm TOP BID HEIDI Last Admin: 07/11/18 17:50 Dose: 1 applic Clonidine HCl (Catapres) 0.1 mg PO Q4H PRN PRN Reason: accelerated htn Last Admin: 07/12/18 00:03 Dose: 0.1 mg Ceftriaxone Sodium (Rocephin 1 Gram Ivpb) 1 gm in 100 mls @ 100 mls/hr IVPB DAILY HEIDI; Protocol Last Admin: 07/11/18 09:44 Dose: 100 mls/hr Sodium Chloride (Sodium Chloride 0.9%) 1,000 mls @ 100 mls/hr IV .Q10H HEIDI Last Admin: 07/12/18 02:00 Dose: Not Given Lorazepam (Ativan) 1 mg IVP Q2H PRN; Protocol PRN Reason: Seizure activity Thiamine HCl (Vitamin B1 Tab) 100 mg PO DAILY [facility]I Last Admin: 07/11/18 09:44 Dose: 100 mg Physical Exam - Constitutional Appears: Well, No Acute Distress - Head Exam Head Exam: ATRAUMATIC, NORMAL INSPECTION, NORMOCEPHALIC - Eye Exam Eye Exam: EOMI, Normal appearance, PERRL Pupil Exam: NORMAL ACCOMODATION, PERRL - ENT Exam ENT Exam: Mucous Membranes Moist, Normal Exam - Neck Exam Neck exam: Positive for: Normal Inspection - Respiratory Exam Respiratory Exam: Clear to Auscultation Bilateral, NORMAL BREATHING PATTERN - Cardiovascular Exam Cardiovascular Exam: REGULAR RHYTHM, +S1, +S2. absent: Gallop, RRR - GI/Abdominal Exam GI & Abdominal Exam: Normal Bowel Sounds, Soft. absent: Tenderness - Expanded GI/Abdominal Exam Expanded Expanded GI & Abdominal Exam: absent: Ascites - Extremities Exam Extremities exam: Positive for: normal inspection - Back Exam Back exam: NORMAL INSPECTION - Neurological Exam Neurological exam: Alert, CN II-XII Intact, Normal Gait, Oriented x3, Reflexes Normal - Psychiatric Exam Psychiatric exam: Normal Affect, Normal Mood - Skin Skin Exam: Dry, Intact, Normal Color, Warm Results - Vital Signs Recent Vital Signs: Last Vital Signs Temp 98.2 F 07/12/18 05:39 Pulse 71 07/12/18 05:39 Resp 20 07/12/18 05:39 BP 154/86 H 07/12/18 05:39 Pulse Ox 97 07/12/18 05:39 - Labs Result Diagrams: 07/09/18 04:49 07/11/18 06:45 Assessment & Plan - Assessment and Plan (Free Text) Assessment: 63 y/o male with PMH of active extensive alcohol abuse, HCV (treated in ) admitted to [facility] for witnessed seizure episode. GI consulted for tranaminitis and h/o HCV. Plan: Tansaminitis: -AST/ALT 243/102 likely due to alcoholic liver disease -patient asymptomatic. unremarkable abdominal exam -abd U/S ordered -hepatitis panel ordered -patient counseled to quit smoking, alcohol consumption -h/o HCV treated in -EGD/CSPY within 10 years ago with normal results. recommended repeat studies at [facility] -no endoscopic procedures needed at this time Case reviewed and plan discussed with attending Dr Pastor Hernandes, <Rody Baumann V - Last Filed: 07/12/18 23:12> Meds - Medications Medications: Current Medications Acetaminophen (Tylenol 325mg Tab) 650 mg PO Q6H PRN PRN Reason: FEVER OR PAIN Last Admin: 07/09/18 18:59 Dose: 650 mg Bacitracin (Bacitracin) 0 gm TOP BID [facility] Last Admin: 07/12/18 18:27 Dose: 1 applic Clonidine HCl (Catapres) 0.1 mg PO Q4H PRN PRN Reason: accelerated htn Last Admin: 07/12/18 00:03 Dose: 0.1 mg Lorazepam (Ativan) 1 mg IVP Q2H PRN; Protocol PRN Reason: Seizure activity Thiamine HCl (Vitamin B1 Tab) 100 mg PO DAILY HEIDI Last Admin: 07/12/18 10:33 Dose: 100 mg Results - Vital Signs Recent Vital Signs: Last Vital Signs Temp 98.2 F 07/12/18 17:57 Pulse 88 07/12/18 21:58 Resp 20 07/12/18 17:57 BP 153/79 H 07/12/18 17:57 Pulse Ox 97 07/12/18 05:39 - Labs Result Diagrams: 07/09/18 04:49 07/11/18 06:45 Attending/Attestation - Attestation I have personally seen and examined this patient.: Yes I have fully participated in the care of the patient.: Yes I have reviewed all pertinent clinical information: Yes Notes (Text): This is an addendum to GI consult report dictated by the Chemical Preparer. The patient was seen and evaluated earlier. Medical records, lab studies, imagings were reviewed. Last 24 hours events reviewed. Agreed with the above treatment plan as outlined in Chemical Preparer 's notes with the addition of the following clinically more suggestive of alcoholic hepatitis History of seizures Patient is being followed at the [facility] in [place] Would request sonogram to evaluate the liver and also hepatitis profile Follow-up LFT Patient need to follow up with sack repairer when he returns back to [place] Discussed with the patient who fully understood 07/12/18 23:10
--- NOTE | 2018-07-12 09:56 | PN ---
DATE: 07/11/2018 SUBJECTIVE: This 63-year-old male was examined on the cardiac almanzar on the afternoon of 07/11/2018. Present for the interview was his sister, Jeni and family member Lisa. I have reviewed the patient's EMR last evening, he experienced a code star where he was trying to get out of bed without asking for nursing assistance, tripped, and hit his left elbow. According to the medical record, he was hemodynamically stable without any physical defects and no imaging was required. At present, he remains in a normal sinus rhythm on the cardiac tech and continues to receive parenteral Rocephin for fever of unclear etiology. At the time of my interview, the patient was alert and oriented x3. Denying any chest pain or shortness of breath. PHYSICAL EXAMINATION: VITAL SIGNS: Temperature was 98.2, respirations 19, pulse 78 and blood pressure 142/81 with a pulse ox of 99% room air. HEENT: Head: Normocephalic, atraumatic. Eyes: No icterus. Ears: Clear. Throat: Noninjected. NECK: Supple. HEART: S1, S2 LUNGS: Clear. ABDOMEN: Soft. EXTREMITIES: No edema. SKIN: Without rash. NEUROLOGICAL: Intact. Alert and oriented x3. VASCULAR: Legs warm to touch. Motor strength 5/5. LABORATORY DATA: Labs showed sodium 141, K 3.6, chloride 113, bicarb 22, BUN 16, creatinine 1.5. Random blood sugar 100. Bilirubin 0.7, AST 243, ALT 102, alk phos 85. Hepatitis A,B,C serologies were notable for hepatitis C antibody reactive. IMPRESSION: A 63-year-old male admitted status post alcoholic seizure with elevated LFTs, now consistent with hepatitis C and comorbidities of postictal state, deconditioning, and the plan is to continue p.r.n. parenteral Ativan, topical bacitracin to forehead wound, intravenous Rocephin 0.9 saline, p.r.n. Tylenol, and thiamine. I will place a consultation with Dr. Rody Baumann from regarding his hepatitis C findings. The patient will be scheduled for physical therapy for ambulation safety, and based on clinical progress, additional diagnostic workup and testing will be entertained. All of the above was discussed in detail with the patient and family at bedside. All questions were answered. Renuka Zeng MD KALLIE
[2018-07-12] MEDS ORDERED: Bacitracin 500 Units/gm Oint Foilpak UD ONE ×2 (10:30→18:27)
[2018-07-12] MEDS: cefTRIAXone 1 gm 1 GM/100 ML BAG IVPB SCH (10:32)
[2018-07-12] MEDS: Bacitracin Ointment 30 GM TUBE TOP SCH ×2 (10:33→18:27)
--- NOTE | 2018-07-12 12:19 | PN ---
DATE: 07/12/2018 SUBJECTIVE: This 63-year-old male was examined on the cardiac almanzar at the [facility] on the morning of Thursday07/12/2018. At present, he is afebrile and denies any fever, chills, chest pain or shortness of breath. He is in a normal sinus rhythm on the quality assurance monitor body. OBJECTIVE: VITAL SIGNS: Temperature is 98.2, respirations 20, pulse 71, blood pressure 154/86. Pulse ox 97% room air. HEENT: Head: Normocephalic, atraumatic. Eyes no icterus. NECK: Supple. HEART: S1, S2. LUNGS: Clear. Abdomen: Soft. PSYCHIATRIC: Alert. VASCULAR: Legs warm to touch. NEURO; Intact. IMPRESSION: A 63-year-old male with newly noted hepatitis C in the setting of elevated liver function testing and history of alcohol abuse and misuse and alcoholic seizure with postictal state, post seizure and now with hypertension. PLAN: The plan is to continue p.r.n. Ativan, bacitracin to forehead scalp abrasion, clonidine p.r.n. accelerated hypertension and Rocephin 1 g IV every 24 hours. I will discontinue his IV fluids since the patient is eating and drinking and this may be contributing to his elevated blood pressure and based on clinical response will determine if the patient should be started on antihypertensives were monitored as an outpatient regarding this issue. I have placed a consultation with Dr. Rody Baumann from regarding recommendation for referral for hepatitis C treatment and of note, blood and urine cultures are negative at 3 days, and the patient is currently afebrile. I will stop his Rocephin given negative cultures and absence of fever and will discuss disposition planning once the patient is evaluated by Dr. Rody Baumann from . Renuka Zeng MD KALLIE
--- NOTE | 2018-07-12 14:41 | CP.PCM.PN ---
Subjective - Date & Time of Evaluation Date of Evaluation: 07/12/18 Time of Evaluation: 12:00 - Subjective Subjective: Infectious Disease Follow Up: July 12, 2018 63 yo male with new onset seizure. He was visiting his nephew in the area and during a democrat he was witnessed having a seizure. He was taken to [facility] for evaluation where a grand mal seizure was again witnessed. In the ER he was found to be tachycardic, tachypneic, hypertensive, and febrile. In ER the patient was awake and alert but not orientated to person, place, or time but he was somehow able to give a good account of his past such as work history. Patient sister describe seizure as sudden foaming out of mouth, contraction of upper extremities, slurred speech which lead to pt falling forward from chair onto forehead. Today the patient is much more awake and alert. Afebrile today. No leukocytosis. Blood cultures negative at 24 hours. Family remarks that the patient is Hypertensive but refused to take his medications. The patient had a fall Thursday evening. Bed alarm back in place. Gait abnormalities. He is fully awake and alert now. Objective - Vital Signs/Intake and Output Vital Signs (last 24 hours): Temp Pulse Resp BP Pulse Ox 98.2 F 71 20 154/86 H 97 07/12/18 05:39 07/12/18 05:39 07/12/18 05:39 07/12/18 05:39 07/12/18 05:39 Intake and Output: 07/12/18 07/12/18 06:59 18:59 Intake Total 1800 Output Total 800 Balance 1000 - Medications Medications: Current Medications Acetaminophen (Tylenol 325mg Tab) 650 mg PO Q6H PRN PRN Reason: FEVER OR PAIN Last Admin: 07/09/18 18:59 Dose: 650 mg Bacitracin (Bacitracin) 0 gm TOP BID HEIDI Last Admin: 07/12/18 10:33 Dose: Not Given Clonidine HCl (Catapres) 0.1 mg PO Q4H PRN PRN Reason: accelerated htn Last Admin: 07/12/18 00:03 Dose: 0.1 mg Lorazepam (Ativan) 1 mg IVP Q2H PRN; Protocol PRN Reason: Seizure activity Thiamine HCl (Vitamin B1 Tab) 100 mg PO DAILY [facility] Last Admin: 07/12/18 10:33 Dose: 100 mg - Labs Labs: 07/09/18 04:49 07/11/18 06:45 - Constitutional Appears: Non-toxic, No Acute Distress, Chronically Ill - Head Exam Head Exam: NORMOCEPHALIC Additional comments: bandage on forehead for and cut from falling into the floor hitting forehead. - Eye Exam Eye Exam: EOMI, PERRL Pupil Exam: NORMAL ACCOMODATION, PERRL - ENT Exam ENT Exam: Mucous Membranes Moist, Normal External Ear Exam, TM's Normal Bilaterally - Neck Exam Neck Exam: Full ROM, Normal Inspection - Respiratory Exam Respiratory Exam: Clear to Ausculation Bilateral, NORMAL BREATHING PATTERN. absent: Rales, Rhonchi, Wheezes - Cardiovascular Exam Cardiovascular Exam: REGULAR RHYTHM, RRR, +S1, +S2 - GI/Abdominal Exam GI & Abdominal Exam: Soft, Normal Bowel Sounds. absent: Distended, Tenderness - Extremities Exam Extremities Exam: Full ROM, Normal Inspection - Neurological Exam Neurological Exam: Abnormal Gait, Alert, Awake, CN II-XII Intact, Oriented x3 - Psychiatric Exam Psychiatric exam: Normal Affect, Normal Mood - Skin Skin Exam: Normal Color Additional comments: As above Assessment and Plan - Assessment and Plan (Free Text) Assessment: 63 yo male presenting with grand mal seizure to [facility]. Infectious Disease called for a potential infectious component that may have triggered the seizure. No leukocytosis. Fever up to 101.8 F. Chest X-ray no active disease. CT Head no significant abnormalities. The patient is confused since seizure event but recovered by the evening. The patient received one dose of Zosyn. Can continue on Rocephin for now. Zaragoza cultures. Cultures of blood negative at 24 hours. Today the patient fully awake and alert. Bump on the left forehead from his fall into the floor during the seizure episode. His children state that the patient has Hypertension and that the patient has refused to take his blood pressure medications for the past few months. Supportive care. All cultures negative. Fevers were more likely secondary to seizure event. Afebrile since. No further seizures. Patient still with unsteady gait. Noted fall last night. Thank you for allowing me to participate in the care of the patient, we will follow with you.
--- NOTE | 2018-07-13 07:21 | CP.PCM.PN ---
<Jack Hernandes - Last Filed: 07/13/18 17:47> Subjective - Date & Time of Evaluation Date of Evaluation: 07/13/18 Time of Evaluation: 07:19 - Subjective Subjective: Jack Hernandes DO, PGY1. GI Progress note for Dr Baumann Patient seen and examined at bedside. No events overnight. He has no complaints. Patient denied abdominal pain, N/V/D, chest pain, SOB, palpitations, fever, chills Objective - Vital Signs/Intake and Output Vital Signs (last 24 hours): Temp Pulse Resp BP Pulse Ox 99.5 F 83 20 131/84 98 07/13/18 06:00 07/13/18 06:00 07/13/18 06:00 07/13/18 06:00 07/13/18 06:00 Intake and Output: 07/13/18 07/13/18 06:59 18:59 Intake Total 120 Output Total 0 Balance 120 - Medications Medications: Current Medications Acetaminophen (Tylenol 325mg Tab) 650 mg PO Q6H PRN PRN Reason: FEVER OR PAIN Last Admin: 07/09/18 18:59 Dose: 650 mg Bacitracin (Bacitracin) 0 gm TOP BID [facility] Last Admin: 07/12/18 18:27 Dose: 1 applic Clonidine HCl (Catapres) 0.1 mg PO Q4H PRN PRN Reason: accelerated htn Last Admin: 07/12/18 00:03 Dose: 0.1 mg Lorazepam (Ativan) 1 mg IVP Q2H PRN; Protocol PRN Reason: Seizure activity Thiamine HCl (Vitamin B1 Tab) 100 mg PO DAILY [facility] Last Admin: 07/12/18 10:33 Dose: 100 mg - Labs Labs: 07/09/18 04:49 07/11/18 06:45 - Constitutional Appears: Well, No Acute Distress - Head Exam Head Exam: NORMOCEPHALIC Additional comments: lacerations on forehead - Eye Exam Eye Exam: EOMI, Normal appearance, PERRL Pupil Exam: NORMAL ACCOMODATION, PERRL - ENT Exam ENT Exam: Mucous Membranes Moist, Normal Exam - Neck Exam Neck Exam: Full ROM, Normal Inspection. absent: Lymphadenopathy - Respiratory Exam Respiratory Exam: Clear to Ausculation Bilateral, NORMAL BREATHING PATTERN - Cardiovascular Exam Cardiovascular Exam: REGULAR RHYTHM, +S1, +S2. absent: Gallop, Rubs, Murmur - GI/Abdominal Exam GI & Abdominal Exam: Soft, Normal Bowel Sounds. absent: Tenderness - Extremities Exam Extremities Exam: Full ROM, Normal Capillary Refill, Normal Inspection. absent: Joint Swelling, Pedal Edema - Back Exam Back Exam: NORMAL INSPECTION - Neurological Exam Neurological Exam: Alert, Awake, CN II-XII Intact, Normal Gait, Oriented x3 - Psychiatric Exam Psychiatric exam: Normal Affect, Normal Mood - Skin Skin Exam: Dry, Normal Color, Warm Additional comments: lacerations on forehead Assessment and Plan - Assessment and Plan (Free Text) Assessment: 63 y/o male with PMH of active extensive alcohol abuse, HCV (treated in ) admitted to [facility] for witnessed seizure episode. GI consulted for tranaminitis and h/o HCV. Plan: Tansaminitis: -AST/ALT trending up likely due to alcoholic liver disease -patient asymptomatic. unremarkable abdominal exam -abd U/S done read pending -hepatitis panel: negative HBV Ag/Ab -positive HCV Ab only indicative of remote infection -patient counseled to quit smoking, alcohol consumption -h/o HCV treated in -EGD/CSPY within 10 years ago with normal results. recommended repeat studies at [facility] -no endoscopic procedures needed at this time Case reviewed and plan discussed with attending Dr Pastor Hernandes DO <Rody Baumann V - Last Filed: 07/13/18 23:33> Objective - Vital Signs/Intake and Output Vital Signs (last 24 hours): Temp Pulse Resp BP Pulse Ox 98.1 F 66 21 137/83 98 07/13/18 18:00 07/13/18 18:00 07/13/18 18:00 07/13/18 18:00 07/13/18 09:00 Intake and Output: 07/13/18 07/14/18 18:59 06:59 Intake Total 780 Output Total 400 Balance 380 - Medications Medications: Current Medications Acetaminophen (Tylenol 325mg Tab) 650 mg PO Q6H PRN PRN Reason: FEVER OR PAIN Last Admin: 07/09/18 18:59 Dose: 650 mg Bacitracin (Bacitracin) 0 gm TOP BID [facility] Last Admin: 07/13/18 17:34 Dose: 1 applic Clonidine HCl (Catapres) 0.1 mg PO Q4H PRN PRN Reason: accelerated htn Last Admin: 07/12/18 00:03 Dose: 0.1 mg Lorazepam (Ativan) 1 mg IVP Q2H PRN; Protocol PRN Reason: Seizure activity Thiamine HCl (Vitamin B1 Tab) 100 mg PO DAILY [facility] Last Admin: 07/13/18 09:17 Dose: 100 mg - Labs Labs: 07/09/18 04:49 07/11/18 06:45 Attending/Attestation - Attestation I have personally seen and examined this patient.: Yes I have fully participated in the care of the patient.: Yes I have reviewed all pertinent clinical information, including history, physical exam and plan: Yes Notes (Text): This is an addendum to GI progress report dictated by the GI Fellow. The patient was seen and examined earlier. Medical records, lab studies, imagings were reviewed. Last 24 hours events reviewed. Agreed with the above treatment plan as outlined in GI Fellow 's notes with the addition of the following patient's AST shows upward trend , ALT stable Follow-up sonogram Would benefit from immunization for hepatitis A and B Patient intent to follow up at the [facility] in [place] when he returns back from [place] 07/13/18 23:32
[2018-07-13] MEDS: Bacitracin Ointment 30 GM TUBE TOP SCH ×2 (09:29→17:34)
--- NOTE | 2018-07-13 09:51 | US ---
Date of service: 07/12/2018 HISTORY: HSV COMPARISON: Right upper quadrant ultrasound dated 07/09/2018 TECHNIQUE: Sonographic evaluation of the abdomen. FINDINGS: LIVER: Measures 13.1 cm. Normal echogenicity of the liver parenchyma. No mass. No intrahepatic bile duct dilatation. GALLBLADDER: Unremarkable. No gallstones. COMMON BILE DUCT: Measures 3 mm. No stones. No dilatation. PANCREAS: Unremarkable as visualized. No mass. No ductal dilatation. RIGHT KIDNEY: Measures 11.7 x 4.0 x 5.4cm. Normal echogenicity. No calculus, mass, or hydronephrosis. LEFT KIDNEY: Measures 11.0 x 5.6 x 5.7cm. Normal echogenicity. No calculus, mass, or hydronephrosis. SPLEEN: Normal in size and contour. No mass. AORTA: No aneurysmal dilatation. IVC: Unremarkable. OTHER FINDINGS: None. IMPRESSION: Unremarkable abdominal sonogram.
[2018-07-13 11:13] LABS: ALT/SGPT 105 U/L (7-56); AST/SGOT 411 U/L (17-59)
--- NOTE | 2018-07-13 15:06 | CP.PCM.PN ---
Subjective - Date & Time of Evaluation Date of Evaluation: 07/13/18 Time of Evaluation: 14:00 - Subjective Subjective: Infectious Disease Follow Up: July 13, 2018 63 yo male with new onset seizure. He was visiting his nephew in the area and during a republican he was witnessed having a seizure. He was taken to [facility] for evaluation where a grand mal seizure was again witnessed. In the ER he was found to be tachycardic, tachypneic, hypertensive, and febrile. In ER the patient was awake and alert but not orientated to person, place, or time but he was somehow able to give a good account of his past such as work history. Pa tient sister describe seizure as sudden foaming out of mouth, contraction of upper extremities, slurred speech which lead to pt falling forward from chair onto forehead. Today the patient is much more awake and alert. Afebrile today. No leukocytosis. Blood cultures negative at 24 hours. Family remarks that the patient is Hypertensive but refused to take his medications. The patient had a fall Thursday evening. Bed alarm back in place. Gait abnormalities. He is fully awake and alert now. Objective - Vital Signs/Intake and Output Vital Signs (last 24 hours): Temp Pulse Resp BP Pulse Ox 98.5 F 72 19 149/85 98 07/13/18 12:00 07/13/18 12:00 07/13/18 12:00 07/13/18 12:00 07/13/18 06:00 Intake and Output: 07/13/18 07/13/18 06:59 18:59 Intake Total 120 Output Total 0 Balance 120 - Medications Medications: Current Medications Acetaminophen (Tylenol 325mg Tab) 650 mg PO Q6H PRN PRN Reason: FEVER OR PAIN Last Admin: 07/09/18 18:59 Dose: 650 mg Bacitracin (Bacitracin) 0 gm TOP BID [facility] Last Admin: 07/13/18 09:29 Dose: 1 applic Clonidine HCl (Catapres) 0.1 mg PO Q4H PRN PRN Reason: accelerated htn Last Admin: 07/12/18 00:03 Dose: 0.1 mg Lorazepam (Ativan) 1 mg IVP Q2H PRN; Protocol PRN Reason: Seizure activity Thiamine HCl (Vitamin B1 Tab) 100 mg PO DAILY [facility] Last Admin: 07/13/18 09:17 Dose: 100 mg - Labs Labs: 07/09/18 04:49 07/11/18 06:45 - Constitutional Appears: Non-toxic, No Acute Distress, Chronically Ill - Head Exam Head Exam: ATRAUMATIC, NORMOCEPHALIC - Eye Exam Eye Exam: EOMI, PERRL Pupil Exam: NORMAL ACCOMODATION, PERRL - ENT Exam ENT Exam: Mucous Membranes Moist, Normal External Ear Exam, TM's Normal Bilaterally - Neck Exam Neck Exam: Full ROM, Normal Inspection - Respiratory Exam Respiratory Exam: Clear to Ausculation Bilateral, NORMAL BREATHING PATTERN. absent: Rales, Rhonchi, Wheezes - Cardiovascular Exam Cardiovascular Exam: REGULAR RHYTHM, RRR, +S1, +S2 - GI/Abdominal Exam GI & Abdominal Exam: Soft, Normal Bowel Sounds. absent: Distended, Tenderness - Extremities Exam Extremities Exam: Full ROM, Normal Inspection - Neurological Exam Neurological Exam: Alert, Awake, CN II-XII Intact, Oriented x3 - Psychiatric Exam Psychiatric exam: Normal Affect, Normal Mood - Skin Skin Exam: Intact, Normal Color Assessment and Plan - Assessment and Plan (Free Text) Assessment: 63 yo male presenting with grand mal seizure to [facility]. Infectious Disease called for a potential infectious component that may have triggered the seizure. No leukocytosis. Fever up to 101.8 F. Chest X-ray no active disease. CT Head no significant abnormalities. The patient is confused since seizure event but recovered by the evening. The patient received one dose of Zosyn. Can continue on Rocephin for now. Zaragoza cultures. Cultures of blood negative at 24 hours. Today the patient fully awake and alert. Bump on the left forehead from his fall into the floor during the seizure episode. His children state that the patient has Hypertension and that the patient has refused to take his blood pressure medications for the past few months. Supportive care. All cultures negative. Fevers were more likely secondary to seizure event. Afebrile since. No further seizures. Patient still with unsteady gait. Noted fall two nights ago. Mentally, the patient is back to his normal. Thank you for allowing me to participate in the care of the patient, we will follow with you.
[2018-07-14 01:51] VITALS: RESP 18
[2018-07-14 07:57] LABS: HEPATITIS B SURFACE AG Negative (NEGATIVE)
[2018-07-14 08:05] LABS: HEPATITIS A IGM NEGATIVE (NEGATIVE); HEPATITIS B CORE AB NEGATIVE (NEGATIVE)
[2018-07-14 09:22] LABS: HEPATITIS C ANTIBODY REACTIVE (NEGATIVE)
[2018-07-14 09:34] LABS: METHYLMALONIC ACID,SERUM 79 nmol/L (87-318)
[2018-07-14] MEDS: Bacitracin Ointment 30 GM TUBE TOP SCH (10:17)
--- NOTE | 2018-07-14 11:20 | PN ---
DATE: 07/13/2018 SUBJECTIVE: This 63-year-old male was examined at his bedside in the presence of his nephews and case was reviewed with nurse, Ankita Sepulveda, Registered Nurse. The patient is alert, oriented x3 and states he ambulated on the floor without incident. He is in a normal sinus rhythm on the cardiac specialist and has been seen by both Dr. Tacos Wallis from Infectious Disease and Dr. Rody Baumann from GI. He denied any fever, chills, chest pain, or shortness of breath. PHYSICAL EXAMINATION: VITAL SIGNS: His temperature was 99.5, respirations 20, pulse 83, and blood pressure 131/84, with a pulse ox of 98% room air. Physical exam is unchanged. LABORATORY DATA: Hepatitis A IgM antibody is negative, hepatitis B surface antigen is negative, hepatitis B surface antibody is negative, and hepatitis C antibody is reactive x2. Most recent white count is 6600, hemoglobin 14.5, hematocrit 42.8, and platelets 225,000. Sodium 141, K 3.6, chloride 113, bicarb 22, BUN 16, creatinine 1.5, random blood sugar 100. AST 411, ALT 105, alk phos 85, bilirubin 0.7. Vitamin B12 level 505. Abdominal ultrasound previously reviewed was unremarkable. IMPRESSION: A 63-year-old male with chronic hepatitis C, alcohol abuse and misuse, status post a fall where he sustained a laceration to his left forehead with chronically elevated liver function tests and negative blood and urine cultures to date with an unremarkable chest x-ray, brain MRI, and CT of the head. PLAN: The plan as discussed with the patient and nursing at bedside will be to ensure that this patient is cleared by physical therapy for discharge to home. The patient does follow with the [facility] in [place] where he resides and has been advised that he will need followup regarding his chronic hepatitis C issues and elevated liver function testing issues, which are exacerbated by his chronic alcohol abuse and misuse. This was discussed with his family. The patient remained stable at present and hopefully will be cleared for discharge by GI and Infectious Disease in the a.m. Renuka Zeng MD [facility] # [id number]
[2018-07-14 12:32] VITALS: BP 120/71; TEMP 98.2
--- NOTE | 2018-07-14 13:02 | CP.PCM.PN ---
<Jack Hernandes - Last Filed: 07/14/18 17:52> Subjective - Date & Time of Evaluation Date of Evaluation: 07/14/18 Time of Evaluation: 08:30 - Subjective Subjective: Jack Hernandes DO, PGY1. GI Progress note for Dr Baumann Patient seen and examined at bedside. No events overnight. He has no complaints. Patient denied abdominal pain, N/V/D, chest pain, SOB, palpitations, fever, chills Objective - Vital Signs/Intake and Output Vital Signs (last 24 hours): Temp Pulse Resp BP Pulse Ox 98.2 F 75 18 120/71 96 07/14/18 12:00 07/14/18 12:00 07/14/18 12:00 07/14/18 12:00 07/14/18 06:00 Intake and Output: 07/14/18 07/14/18 06:59 18:59 Intake Total 180 Output Total 0 Balance 180 - Medications Medications: Current Medications Acetaminophen (Tylenol 325mg Tab) 650 mg PO Q6H PRN PRN Reason: FEVER OR PAIN Last Admin: 07/09/18 18:59 Dose: 650 mg Bacitracin (Bacitracin) 0 gm TOP BID [facility] Last Admin: 07/14/18 10:17 Dose: 1 applic Clonidine HCl (Catapres) 0.1 mg PO Q4H PRN PRN Reason: accelerated htn Last Admin: 07/12/18 00:03 Dose: 0.1 mg Lorazepam (Ativan) 1 mg IVP Q2H PRN; Protocol PRN Reason: Seizure activity Thiamine HCl (Vitamin B1 Tab) 100 mg PO DAILY [facility] Last Admin: 07/14/18 10:17 Dose: 100 mg - Labs Labs: 07/09/18 04:49 07/11/18 06:45 - Additional Findings Additional findings: - Constitutional Appears: Well, No Acute Distress - Head Exam Head Exam: NORMOCEPHALIC Additional comments: lacerations on forehead - Eye Exam Eye Exam: EOMI, Normal appearance, PERRL Pupil Exam: NORMAL ACCOMODATION, PERRL - ENT Exam ENT Exam: Mucous Membranes Moist, Normal Exam - Neck Exam Neck Exam: Full ROM, Normal Inspection. absent: Lymphadenopathy - Respiratory Exam Respiratory Exam: Clear to Ausculation Bilateral, NORMAL BREATHING PATTERN - Cardiovascular Exam Cardiovascular Exam: REGULAR RHYTHM, +S1, +S2. absent: Gallop, Rubs, Murmur - GI/Abdominal Exam GI & Abdominal Exam: Soft, Normal Bowel Sounds. absent: Tenderness - Extremities Exam Extremities Exam: Full ROM, Normal Capillary Refill, Normal Inspection. absent: Joint Swelling, Pedal Edema - Back Exam Back Exam: NORMAL INSPECTION - Neurological Exam Neurological Exam: Alert, Awake, CN II-XII Intact, Normal Gait, Oriented x3 - Psychiatric Exam Psychiatric exam: Normal Affect, Normal Mood - Skin Skin Exam: Dry, Normal Color, Warm Additional comments: lacerations on forehead Assessment and Plan - Assessment and Plan (Free Text) Assessment: 63 y/o male with PMH of active extensive alcohol abuse, HCV (treated in ) admitted to [facility] for witnessed seizure episode. GI consulted for tranaminitis and h/o HCV Plan: Tansaminitis: -elevated AST likely due to alcoholic liver disease -repeat AST trending down -patient asymptomatic. unremarkable abdominal exam -abd U/S 07/12: no abnormalities -hepatitis panel: negative HBV Ag/Ab -recommend immunization for hepatitis A and B -positive HCV Ab only, indicative of remote infection -patient counseled to quit smoking, alcohol consumption -h/o HCV treated in -EGD/CSPY within 10 years with normal results. recommended repeat studies and f/u with GI physician at [facility] in [place] Case reviewed and plan discussed with attending Dr Pastor Hernandes DO <Rody Baumann V - Last Filed: 07/14/18 23:11> Objective - Vital Signs/Intake and Output Vital Signs (last 24 hours): Temp Pulse Resp BP Pulse Ox 98.2 F 73 18 120/71 98 07/14/18 12:00 07/14/18 14:00 07/14/18 12:00 07/14/18 12:00 07/14/18 09:00 - Labs Labs: 07/09/18 04:49 07/11/18 06:45 Attending/Attestation - Attestation I have personally seen and examined this patient.: Yes I have fully participated in the care of the patient.: Yes I have reviewed all pertinent clinical information, including history, physical exam and plan: Yes Notes (Text): This is an addendum to resident's progress report .The patient was seen and examined earlier. Medical records, lab studies, imagings were reviewed. Last 24 hours events reviewed. Agreed with the above treatment plan as outlined in residents 's notes with the addition of the following 07/14/18 23:10
[2018-07-14 14:23] LABS: ALB/GLOB RATIO 1.1 (1.1-1.8); ALBUMIN 3.9 g/dL (3.0-4.8); BILIRUBIN,DIRECT 0.2 mg/dL (0.0-0.4)
[2018-07-14 15:04] VITALS: PULSE 73
[2018-07-14 15:09] VITALS: O2SAT 98
--- NOTE | 2018-07-14 15:16 | DS ---
SUBJECTIVE: This 63-year-old male is being discharged status post alcohol withdrawal seizure, chronic alcohol abuse and misuse, chronic hepatitis C, history of diet-controlled diabetes mellitus and chronically elevated liver function testing secondary to alcoholic hepatitis. DISPOSITION: To home. FOLLOWUP: With [facility] in [place] where he lives. CONSULTANTS: Dr. Tacos Wallis from Infectious Disease, Dr. Hudson Williamson from Neurology and Dr. Rody Baumann from GI. DISCHARGE MEDICATIONS: Include thiamine 100 mg p.o. daily. The patient is advised to cleanse his left forehead wound and to apply bacitracin with topical Band-Aid b.i.d. and to avoid alcohol. SUMMARY: This 63-year-old male was admitted to [facility] with alcoholic seizures in the setting of alcohol abuse and misuse. He was noted to have elevated liver function testing and a positive hepatitis C, and the patient did confirm a longstanding history of hepatitis C. He was seen in consultation by Dr. Hudson Williamson from Neurology, Dr. Tacos Wallis from Infectious Disease and Dr. Rody Baumann from GI. He has been cleared by all consultants for discharge and has been advised to desist in his alcohol abuse and misuse and this was reviewed with his family members at the bedside as well. The patient will be returning to his residence in [place]. PHYSICAL EXAMINATION: VITALS SIGNS: At the time of discharge his vital signs showed temperature 98.4, respirations 18, pulse 69, blood pressure 148/77 and pulse ox 99% on room air. LABORATORY DATA: Sodium 141, K 3.6, chloride 113, bicarb 22, BUN 16, creatinine 1.5, random blood sugar 100, AST 411, ALT 105, bilirubin 0.7 and alk phos 85. White count 6600, hemoglobin 14.5, hematocrit 42.8 and platelets 225,000. Hepatitis C antibody reactive x2. FINAL DISPOSITION: The patient is discharged to the care of his family. He has been counseled against further alcohol abuse and misuse. He is advised not to cigarette smoke as well and to follow up with the [facility] upon his return to his home for further management of his chronic hepatitis C and elevated liver function testing exacerbated by recent alcohol binge. He was cleared for discharge this morning by Dr. Baumann with whom I did discuss his case. Renuka Zeng MD [facility] # [id number] KALLIE
--- NOTE | 2018-07-14 15:31 | CP.PCM.PN ---
Subjective - Date & Time of Evaluation Date of Evaluation: 07/14/18 Time of Evaluation: 15:00 - Subjective Subjective: Infectious Disease Follow Up: July 14, 2018 63 yo male with new onset seizure. He was visiting his nephew in the area and during a green party he was witnessed having a seizure. He was taken to [facility] for evaluation where a grand mal seizure was again witnessed. In the ER he was found to be tachycardic, tachypneic, hypertensive, and febrile. In ER the patient was awake and alert but not orientated to person, place, or time but he was somehow able to give a good account of his past such as work history. Pa tient sister describe seizure as sudden foaming out of mouth, contraction of upper extremities, slurred speech which lead to pt falling forward from chair onto forehead. Today the patient is much more awake and alert. Afebrile today. No leukocytosis. Blood cultures negative at 48 hours. Family remarks that the patient is Hypertensive but refused to take his medications. The patient had a fall Thursday evening. Bed alarm back in place. Gait abnormalities that have improved. He is fully awake and alert now. Objective - Vital Signs/Intake and Output Vital Signs (last 24 hours): Temp Pulse Resp BP Pulse Ox 98.2 F 73 18 120/71 98 07/14/18 12:00 07/14/18 14:00 07/14/18 12:00 07/14/18 12:00 07/14/18 09:00 Intake and Output: 07/14/18 07/14/18 06:59 18:59 Intake Total 180 Output Total 0 Balance 180 - Medications Medications: Current Medications Acetaminophen (Tylenol 325mg Tab) 650 mg PO Q6H PRN PRN Reason: FEVER OR PAIN Last Admin: 07/09/18 18:59 Dose: 650 mg Bacitracin (Bacitracin) 0 gm TOP BID [facility] Last Admin: 07/14/18 10:17 Dose: 1 applic Clonidine HCl (Catapres) 0.1 mg PO Q4H PRN PRN Reason: accelerated htn Last Admin: 07/12/18 00:03 Dose: 0.1 mg Lorazepam (Ativan) 1 mg IVP Q2H PRN; Protocol PRN Reason: Seizure activity Thiamine HCl (Vitamin B1 Tab) 100 mg PO DAILY [facility] Last Admin: 07/14/18 10:17 Dose: 100 mg - Labs Labs: 07/09/18 04:49 07/11/18 06:45 - Constitutional Appears: Non-toxic, No Acute Distress, Chronically Ill - Head Exam Head Exam: ATRAUMATIC, NORMOCEPHALIC - Eye Exam Eye Exam: EOMI, PERRL Pupil Exam: NORMAL ACCOMODATION, PERRL - ENT Exam ENT Exam: Mucous Membranes Moist, Normal External Ear Exam, TM's Normal Bilaterally - Neck Exam Neck Exam: Full ROM, Normal Inspection - Respiratory Exam Respiratory Exam: Clear to Ausculation Bilateral, NORMAL BREATHING PATTERN. absent: Rales, Rhonchi, Wheezes - Cardiovascular Exam Cardiovascular Exam: REGULAR RHYTHM, RRR, +S1, +S2 - GI/Abdominal Exam GI & Abdominal Exam: Soft, Normal Bowel Sounds. absent: Distended, Tenderness - Extremities Exam Extremities Exam: Full ROM, Normal Inspection - Neurological Exam Neurological Exam: Alert, Awake, CN II-XII Intact, Oriented x3 - Psychiatric Exam Psychiatric exam: Normal Affect, Normal Mood - Skin Skin Exam: Intact, Normal Color Assessment and Plan - Assessment and Plan (Free Text) Assessment: 63 yo male presenting with grand mal seizure to [facility]. Infectious Disease called for a potential infectious component that may have triggered the seizure. No leukocytosis. Fever up to 101.8 F. Chest X-ray no active disease. CT Head no significant abnormalities. The patient is confused since seizure event but recovered by the evening. The patient received one dose of Zosyn. Can continue on Rocephin for now. Zaragoza cultures. Cultures of blood negative at 24 hours. Today the patient fully awake and alert. Bump on the left forehead from his fall into the floor during the seizure episode. His children state that the patient has Hypertension and that the patient has refused to take his blood pressure medications for the past few months. Supportive care. All cultures negative. Fevers were more likely secondary to seizure event. Afebrile since. No further seizures. Patient still with unsteady gait. Noted fall several nights ago. Mentally, the patient is back to his normal. Gait has improved. He is cleared for discharge from an ID standpoint. Off of antibiotics. Thank you for allowing me to participate in the care of the patient, we will follow with you.
== END 2018-07-14 18:35 | disposition home or self-care (01) | DRG 101 ==
LOC: ED 04:38 → ERH 07:39 → EDBD 07:39 → ERH 08:08 → 2RNO 09:15
PROVIDERS: ADMIT Internal Medicine; ATTEND Internal Medicine
DX: G40.409 Other generalized epilepsy and epileptic syndromes, not intractable, without status epilepticus (principal); F10.239 Alcohol dependence with withdrawal, unspecified; F05 Delirium due to known physiological condition; B18.2 Chronic viral hepatitis C; Z80.0 Family history of malignant neoplasm of digestive organs; Z80.3 Family history of malignant neoplasm of breast; I10 Essential (primary) hypertension; K21.9 Gastro-esophageal reflux disease without esophagitis; M24.50 Contracture, unspecified joint; S01.01XA Laceration without foreign body of scalp, initial encounter; W07.XXXA Fall from chair, initial encounter; F17.210 Nicotine dependence, cigarettes, uncomplicated; Z90.49 Acquired absence of other specified parts of digestive tract; R40.2412 Glasgow coma scale score 13-15, at arrival to emergency department